=== PATIENT | male | born 1990 | race Caucasian/White ===

== ENCOUNTER 2022-04-27 08:17 | Outpatient (CLI) | payer BC, OTHER, SELFPAY ==
--- NOTE | 2022-04-27 08:15 | MR_ITS ---
[address] [address] Phone:?[phone] Fax:?[phone] Referring Physician Information: Yulia Mendieta M.D. [id number] [address] Phone:?[phone] Fax:?[phone] Patient:?Paula Price D.O.B:?1990 Sex:?Male Phone:?[phone] [facility] MRN:?[id number] Exam Date:?04/27/2022 ? EXAM: MR LUMBAR SPINE WITHOUT CONTRAST 1.5T CLINICAL INFORMATION: Thoracic and low back pain radiating down the right leg. Lumbar radicular pain. TECHNICAL INFORMATION: T1, T2 and STIR sagittal sections through the lumbar spine with T1 coronal sections, T1 and T2 FSE stacked axial and axial oblique sections at selected levels. COMPARISON IMAGES: No comparisons. INTERPRETATION:?Segmentation and Alignment: Lordotic alignment of five lumbar- type vertebrae. Sacrum and Sacroiliac joints:?Normal sacrum and sacroiliac joints. L5-S1: Moderate disc degeneration with a 4 mm broad-based right paracentral disc herniation abutting the right S1 nerve root seen best on T1 angled axial image 14. Mild narrowing of the neural foramina. Facet joints normal. L4-5 through T12-L1: Normal intervertebral disc and facet joints. No stenosis or impingement. Conus: Normal signal intensity within the conus medullaris. No intradural mass or arachnoidal adhesions. Osseous structures: Normal signal intensity within the vertebral marrow spaces. No fracture or avulsion. No osteolytic or destructive bone lesion. Paraspinous soft tissues:?No paraspinous soft tissue mass or fluid collection. CONCLUSION: 1. 4 mm broad-based right paracentral disc herniation at L5-S1 abutting the right S1 nerve root. 2. Moderate single-level lumbar disc degeneration at L5-S1. 3. No intradural abnormality, and no neoplasm, fracture or infection. Electronically signed on 04/27/2022 12:27:00 PM by Earl Simmons M.D.
== END 2022-04-27 08:18 | disposition home or self-care (01) ==
PROVIDERS: PCP Emergency Medicine; Visit Provider Emergency Medicine
DX: M54.50 Low back pain, unspecified (principal); M54.16 Radiculopathy, lumbar region; M54.6 Pain in thoracic spine; M51.27 Other intervertebral disc displacement, lumbosacral region; M51.37 Other intervertebral disc degeneration, lumbosacral region
CPT/HCPCS: 72148